=== PATIENT | female | born 1995 | race Caucasian/White ===

== ENCOUNTER 2020-05-20 01:27 | Observation (INO) ==
[2020-05-20] MEDS ORDERED: 0.9 % Sodium Chloride 1,000 ML IVC ONE ×2 (01:44→16:18)
[2020-05-20] MEDS ORDERED: Morphine Sulfate 2 MG/ML SYRINGE IVP ONE (01:59)
[2020-05-20] MEDS ORDERED: Ondansetron 4 MG/2 ML VIAL IVP ONE (02:00)
[2020-05-20 02:09] LABS: Bilirubin,Urine Negative (Negative); Blood,Urine Negative (Negative); Clarity,Urine Clear (Clear); Color,Urine Light-Yellow (Yellow); Glucose,Urine (UA) Normal (Normal); Ketones,Urine Negative (Negative); Leukocyte Esterase,Urine Negative (Negative); Nitrite,Urine Negative (Negative); PH,Urine 5.5 pH Units (5.0-8.0); Protein,Urine Negative (Neg-Trace); Specific Gravity,Urine 1.029 (1.010-1.025); Urobilinogen,Urine Normal (Normal)
[2020-05-20 02:15] LABS: Basophils % 0.2 %; Eosinophils # 0.1 K/mcL (0.0-0.6); Eosinophils % 0.3 %; Hematocrit 42.2 % (35.3-44.9); Hemoglobin 14.1 g/dL (11.5-15.4); Immature Granulocytes % 0.3 % (0-4); Lymphocytes # 1.8 K/mcL (0.6-4.6); Lymphocytes % 10.6 %; Mean Corpuscular HGB Conc 33.4 g/dL (31.6-35.5); Mean Corpuscular Hemoglobin 29.4 pg (28.0-33.3); Mean Corpuscular Volume 88.1 fL (83.0-100.0); Mean Platelet Volume 12.1 fL (9.4-12.4); Monocytes % 6.1 %; Platelet Count 239 K/mcL (140-400); Red Blood Count 4.79 M/mcL (3.82-4.97); Red Cell Distribution Width 12.2 % (11.5-14.5); Segmented Neutrophils % 82.5 %; White Blood Count 16.9 K/mcL (4.3-11.1)
[2020-05-20 02:31] LABS: Alanine Aminotransferase 26 Units/L (7-52); Albumin 4.8 g/dL (3.5-5.7); Albumin/Globulin Ratio 1.5 (1.1-2.2); Alkaline Phosphatase 63 Units/L (34-104); Aspartate Amino Transferase 20 Units/L (13-39); BUN/Creatinine Ratio 21 (6-26); Bilirubin,Direct 0.1 mg/dL (0.0-0.2); Bilirubin,Indirect 0.4 mg/dL (0.0-1.0); Bilirubin,Total 0.5 mg/dL (0.3-1.0); Blood Urea Nitrogen 13 mg/dL (6-20); Calcium 9.6 mg/dL (8.6-10.3); Carbon Dioxide 27 mEq/L (23-29); Chloride 104 mEq/L (98-107); Globulin 3.1 g/dL (2.4-3.5); Glucose 128 mg/dL (70-105); Lipase 29 Units/L (11-82); Osmolality,Calculated 288 (280-300); Potassium 3.3 mEq/L (3.5-5.1); Sodium 138 mEq/L (136-145); Total Protein 7.9 g/dL (6.4-8.9); eGFR For African Americans > 60 (> 60); eGFR For Non-African Americans > 60 (> 60)
[2020-05-20] MEDS ORDERED: Isovue-370 500 ML BOTTLE IVP ONE (02:53)
[2020-05-20] MEDS ORDERED: *HR* HYDROmorphone (PF) 1 MG/ML SYRINGE IVP ONE ×2 (02:56→05:32)
[2020-05-20] MEDS ORDERED: Piperacillin/Tazobactam 3.375 GM in 0.9 % Sodium Chloride Mini Bag 100 ML IVPB ONE (05:23)
[2020-05-20] MEDS ORDERED: 0.9 % Sodium Chloride 1,000 ML ONE (05:27)
[2020-05-20] MEDS ORDERED: *HR* OxyCODONE/APAP 5/325 TABLET PO PRN (07:16)
[2020-05-20] MEDS ORDERED: Ondansetron 4 MG/2 ML VIAL IVP PRN (10:58)
[2020-05-20] MEDS ORDERED: Naloxone 0.4 MG/ML INJ IVP PRN (10:58)
[2020-05-20] MEDS ORDERED: Albuterol 2.5 MG/3 ML NEBULIZER IH PRN (11:02)
[2020-05-20] MEDS: 0.9 % Sodium Chloride 1,000 ML IVC SCH ×2 (11:31)
[2020-05-20] MEDS: *HR* Heparin 5,000 UNIT/ML VIAL SQ SCH ×2 (14:14→21:26)
[2020-05-20] MEDS: Piperacillin/Tazobactam 3.375 GM in 0.9 % Sodium Chloride Mini Bag 100 ML IVPB SCH (15:48)
[2020-05-20 16:40] LABS: Magnesium 1.6 mg/dL (1.6-2.6); Phosphorous 2.5 mg/dL (2.7-4.5)
[2020-05-20] MEDS ORDERED: Potassium Phosphate 44 MEQ in 0.9 % Sodium Chloride 250 ML IVPB ONE (16:52)
[2020-05-20] MEDS: Ketorolac 30 MG/ML VIAL IVP PRN (17:23)
[2020-05-21] MEDS: Piperacillin/Tazobactam 3.375 GM in 0.9 % Sodium Chloride Mini Bag 100 ML IVPB SCH ×2 (00:16→07:59)
[2020-05-21] MEDS: Ketorolac 30 MG/ML VIAL IVP PRN (02:40)
[2020-05-21] MEDS: *HR* Heparin 5,000 UNIT/ML VIAL SQ SCH (05:33)
[2020-05-21] MEDS: 0.9 % Sodium Chloride 1,000 ML IVC SCH (07:39)
[2020-05-21 09:51] LABS: Basophils % 0.2 %; Eosinophils # 0.1 K/mcL (0.0-0.6); Eosinophils % 0.6 %; Hematocrit 38.3 % (35.3-44.9); Immature Granulocytes % 0.2 % (0-4); Lymphocytes # 1.5 K/mcL (0.6-4.6); Mean Corpuscular HGB Conc 32.4 g/dL (31.6-35.5); Mean Corpuscular Hemoglobin 28.9 pg (28.0-33.3); Mean Corpuscular Volume 89.3 fL (83.0-100.0); Mean Platelet Volume 12.1 fL (9.4-12.4); Monocytes # 0.6 K/mcL (0.0-1.3); Neutrophils # 7.6 K/mcL (1.6-8.9); Platelet Count 169 K/mcL (140-400); Red Blood Count 4.29 M/mcL (3.82-4.97); Red Cell Distribution Width 12.5 % (11.5-14.5); White Blood Count 9.7 K/mcL (4.3-11.1)
[2020-05-21 09:53] LABS: Hemoglobin 12.4 g/dL (11.5-15.4)
[2020-05-21 10:08] LABS: Alanine Aminotransferase 15 Units/L (7-52); Albumin 3.8 g/dL (3.5-5.7); Albumin/Globulin Ratio 1.5 (1.1-2.2); Alkaline Phosphatase 58 Units/L (34-104); Aspartate Amino Transferase 11 Units/L (13-39); BUN/Creatinine Ratio 10 (6-26); Blood Urea Nitrogen 5 mg/dL (6-20); Calcium 8.6 mg/dL (8.6-10.3); Carbon Dioxide 23 mEq/L (23-29); Chloride 110 mEq/L (98-107); Globulin 2.6 g/dL (2.4-3.5); Glucose 91 mg/dL (70-105); Osmolality,Calculated 285 (280-300); Potassium 3.7 mEq/L (3.5-5.1); Sodium 139 mEq/L (136-145); Total Protein 6.4 g/dL (6.4-8.9); eGFR For African Americans > 60 (> 60); eGFR For Non-African Americans > 60 (> 60)
[2020-05-21] MEDS ORDERED: *HR* HYDROmorphone 2 MG/ML SYRINGE IVP ONE (10:42)
[2020-05-21 12:36] VITALS: BP 104/69
== END 2020-05-21 15:31 | disposition home or self-care (01) ==
LOC: 2NENU 01:27 → EMEROOARM 01:27 → SUATTDRO 08:58 → 2NENU 09:07
PROVIDERS: ADMIT Family Medicine; ATTEND Pharmacist

== ENCOUNTER 2022-04-11 22:01 | Inpatient (IN) ==
[2022-04-11] MEDS ORDERED: Naloxone 0.4 MG/ML INJ IVP PRN (22:40)
[2022-04-11] MEDS ORDERED: Azithromycin 500 MG in 0.9 % Sodium Chloride 250 ML IVPB PRN (22:40)
[2022-04-11] MEDS ORDERED: Metoclopramide 10 MG/2 ML VIAL IVP PRN (22:40)
[2022-04-11] MEDS ORDERED: Famotidine 20 MG/2 ML VIAL IVP PRN (22:40)
[2022-04-11] MEDS ORDERED: miSOPROStoL 25 MCG TABLET PO PRN (22:40)
[2022-04-11] MEDS ORDERED: *HR* Nalbuphine 10 MG/ML AMPUL IV PRN (22:40)
[2022-04-11] MEDS ORDERED: Ondansetron 4 MG/2 ML VIAL IVP PRN (22:40)
[2022-04-11] MEDS ORDERED: *HR* FentaNYL (PF) 100 MCG/2 ML VIAL IVP PRN (22:40)
[2022-04-11] MEDS ORDERED: Lidocaine 1% 20 ML MDV INFILT PRN (22:40)
[2022-04-11] MEDS ORDERED: Ringers Solution, Lactated 1,000 ML IVC SCH (22:45)
[2022-04-11] MEDS ORDERED: Oxytocin 30 UNIT/503 ML BAG IVC SCH (23:15)
[2022-04-11 23:16] LABS: Amphetamine Screen,Urine Negative ng/mL (Cutoff=1000); Barbiturate Screen,Urine Negative ng/mL (Cutoff=200); Benzodiazepines Screen,Urine Negative ng/mL (Cutoff=200); Cannabinoid Screen,Urine Negative ng/mL (Cutoff = 50); Cocaine Screen,Urine Negative ng/mL (Cutoff= 300); Opiate Screen,Urine Negative ng/mL (Cutoff=300); Phencyclidine Screen,Urine Negative ng/mL (Cutoff=25)
[2022-04-11 23:22] LABS: Basophils % 0.1 %; Eosinophils # 0.1 K/mcL (0.0-0.6); Eosinophils % 0.8 %; Hematocrit 34.1 % (35.3-44.9); Hemoglobin 11.5 g/dL (11.5-15.4); Immature Granulocytes % 0.5 % (0-4); Mean Corpuscular HGB Conc 33.7 g/dL (31.6-35.5); Mean Corpuscular Hemoglobin 30.3 pg (28.0-33.3); Mean Platelet Volume 12.5 fL (9.4-12.4); Monocytes # 0.7 K/mcL (0.0-1.3); Monocytes % 7.8 %; Platelet Count 160 K/mcL (140-400); Red Blood Count 3.79 M/mcL (3.82-4.97); Red Cell Distribution Width 14.2 % (11.5-14.5); Segmented Neutrophils % 67.8 %; White Blood Count 8.8 K/mcL (4.3-11.1)
[2022-04-12] MEDS ORDERED: EPHEDrine sulfate 50 MG/10 ML VIAL IVP PRN (06:02)
[2022-04-12] MEDS ORDERED: Ropivacaine/PF 0.2% 20 ML VIAL EP ONE (06:02)
[2022-04-12] MEDS ORDERED: *HR* FentaNYL (PF) 100 MCG/2 ML VIAL ONE (06:06)
[2022-04-12] MEDS ORDERED: Epidural Premix (fent/bupiv) 110 ML EP ONE (06:08)
[2022-04-12] MEDS ORDERED: Epidural Premix (fent/bupiv) 110 ML EP SCH (06:15)
[2022-04-12] MEDS ORDERED: Ibuprofen 600 MG TABLET PO ONE (09:16)
[2022-04-12] MEDS ORDERED: Ondansetron ODT 4 MG TAB.RAPDIS SL PRN (11:50)
[2022-04-12] MEDS ORDERED: Oxytocin 30 UNIT/503 ML BAG IVC SCH (11:50)
[2022-04-12] MEDS ORDERED: Lanolin 7 G OINT...G. TP PRN (11:50)
[2022-04-12] MEDS: Acetaminophen 325 MG TABLET PO SCH ×2 (12:30→20:16)
[2022-04-12] MEDS: Benzocaine/Menthol 56 GM AEROSOL SPRAY TP PRN (12:30)
[2022-04-12] MEDS: Ibuprofen 600 MG TABLET PO SCH ×2 (17:43→23:45)
[2022-04-13] MEDS: Acetaminophen 325 MG TABLET PO SCH ×2 (02:22→09:04)
[2022-04-13] MEDS: Ibuprofen 600 MG TABLET PO SCH (05:16)
[2022-04-13 05:25] VITALS: O2SAT 97
[2022-04-13 08:53] VITALS: BP 119/76; PULSE 79; TEMP 97.8
[2022-04-13] MEDS ORDERED: Prenatal Vit/FA 1 EACH TABLET PO SCH (09:00)
[2022-04-13] MEDS: Benzocaine/Menthol 56 GM AEROSOL SPRAY TP PRN (09:05)
== END 2022-04-13 11:30 | disposition home or self-care (01) | DRG 807 ==
LOC: 1NENULAB 22:01 → 1NENUOBS 04-12 11:43
PROVIDERS: ADMIT Advanced Practice Midwife; ATTEND Student in an Organized Health Care Education/Training Program